=== PATIENT | male | born 1925 | race Caucasian/White ===

== ENCOUNTER 2016-11-08 18:48 | Emergency (ER) | payer MEDICARE ==
[2016-11-08] MEDS ORDERED: IOPAMIDOL 370 (76%) 100 ML VIAL IV ONE (18:49)
[2016-11-08] MEDS ORDERED: ONDANSETRON 4 MG/2ML 2 ML VIAL ONE (19:32)
[2016-11-08 19:59] LABS: ABSOLUTE NEUTROPHIL COUNT 11.5 K/mm3 (1.8-7.7); BASO # 0.1 K/mm3 (0.0-0.2); BASO % 0.4 % (0.2-1.0); EOS # 0.1 (0.0-0.5); EOS % 0.6 % (0.9-2.9); HEMATOCRIT 39.8 % (32.0-52.0); HEMOGLOBIN 12.6 gm/l (14.0-18.0); IMM NEUT # 0.2 K/mm3 (0-0.2); IMM NEUT% 1.4 % (0-1); LYMPH # 1.5 (1.0-4.8); MEAN CORPUSCULAR HEMOGLOBIN 29.4 pg (27.0-31.0); MEAN CORPUSCULAR HGB CONC 31.7 g/dl (33.0-37.0); MEAN PLATELET VOLUME 9.8 fl (7.4-10.4); MONO # 1.2 (0.0-0.8); MONO % 8.4 % (4-12); NEUT % 79.2 % (43-75); PLATELET COUNT 146 K/mm3 (130-400); RED CELL DISTRIBUTION WIDTH 14.4 % (11.5-14.5)
[2016-11-08 20:16] LABS: ALB/GLOB RATIO 1.7 (>1.0); ALBUMIN 3.6 gm/dL (3.5-5.7); CALCIUM 8.9 mg/dL (8.6-10.3)
[2016-11-08] MEDS ORDERED: MORPHINE SULFATE 4 MG/ML SYRINGE ONE (20:25)
[2016-11-08 21:05] LABS: INR 2.54
[2016-11-08] MEDS ORDERED: SODIUM CHLORIDE 0.9% IV ONE (22:30)
[2016-11-08] MEDS ORDERED: PHYTONADIONE ADULT IV ONE (22:30)
[2016-11-08 22:51] LABS: URINE BILIRUBIN NEGATIVE (NEGATIVE); URINE BLOOD NEGATIVE (NEGATIVE); URINE GLUCOSE (UA) NEGATIVE (NEGATIVE); URINE LEUKOCYTE ESTERASE NEGATIVE (NEGATIVE); URINE NITRITE NEGATIVE (NEGATIVE); URINE PROTEIN 1+ (NEGATIVE); URINE UROBILINOGEN NORMAL (0-1 mg/dl)
[2016-11-08 22:54] LABS: URINE APPEARANCE CLEAR; URINE COLOR YELLOW
[2016-11-08] MEDS ORDERED: PROTHROMBIN COMPLX (PCC HUMAN) 500 UNITS KIT IV ONE (23:00)
--- NOTE | 2016-11-14 14:21 | CT ---
Exam Type: ABD/PELVIS W/ CON Date and Time: 11/08/2016 8:39 PM Clinical information: Left lower quadrant pain. Comparison: None Procedure: Imaging device: [employer] Aquilion [address] scanner 1 mm axial images were obtained through the abdomen and pelvis. Stacked reconstructed 3, 4 and 5 mm images were photographed in the axial coronal and sagittal planes. No oral contrast was utilized for this examination. 100 ml of Isovue-370 was injected intravenously. Exam: with intravenous contrast. FINDINGS: Lung bases:Linear bibasilar atelectasis or scarring is observed. There is no effusion or pneumothorax identified. The heart size is enlarged with evidence of a pericardial effusion which measures up to 2.3 cm transversely along the posterior aspect of the heart. An indwelling pacing device is suggested. Liver: A low-attenuation focus is seen within the right hepatic lobe but attenuation value near 0 suggestive of an hepatic cyst. Spleen: The spleen is heterogeneous with numerous scattered low-attenuation foci. The splenic size is unremarkable. Gallbladder: A small calcified gallstone is suggested within the dependent portion of the gallbladder. Pancreas: Normal without enlargement or evidence of adjacent inflammatory changes. Adrenal glands: Normal without enlargement or evidence of adjacent inflammatory changes. Abdominal aorta: The aorta demonstrates atherosclerotic calcification with a large distal aortic aneurysm measuring up to 7.1 x 6.4 cm in size. There is adjacent increased attenuation fluid seen within the region both anterior and left lateral aspect of the aorta extending from the level of the pancreas into the left lower quadrant suspicious for aneurysmal leakage. Active extravasation of contrast is however not visualized. Substantial intraluminal thrombus is seen within the largest portion of the aorta. 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 Kidneys: The kidneys appear to be symmetric in size with no perinephric inflammatory changes are identified. No current findings of hydronephrosis are seen. Bowel structures: Distal colonic diverticulosis is evident without evidence to suggest diverticulitis. Appendix: The appendix is well-visualized and appears to be of normal caliber. No periappendiceal inflammatory changes or CT findings of appendicitis are currently observed. Bladder: The bladder is of normal contour. No wall thickening or significant distention is observed. Hernia: Fat filled inguinal hernias are present, left greater than right. There is also an umbilical hernia with a small amount of fluid seen within the hernia sac. Adenopathy: No significant enlarged adenopathy is visualized. Osseous structures: Multilevel lumbar degenerative changes are present. Pelvic structures: The prostate gland is enlarged. IMPRESSION: 1. 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 There is high attenuation fluid seen within the retroperitoneum extending from anterior to posterior from the level of the pancreas to the left lower quadrant suggestive of aneurysmal rupture/leakage. Active contrast extravasation is not currently visualized however. 2. Numerous scattered splenic low-attenuation foci which may reflect cysts or possibly areas of splenic infarction. Infection is thought unlikely. 3. 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 4. Distal colonic diverticulosis without evidence to suggest diverticulitis. 5. Gross cardiomegaly with a large pericardial effusion measuring up to 2.3 cm transversely. 6. An indwelling pacing device. 7. A probable right hepatic cyst. 8. Cholelithiasis. 9. An umbilical and bilateral fat filled inguinal hernias. 10. Multilevel lumbar degenerative changes. The findings were called to the emergency room at 2202 hours,11/08/2016, by [facility].
== END 2016-11-08 22:35 ==
LOC: ED 18:48
DX: I71.3 Abdominal aortic aneurysm, ruptured (principal); I50.9 Heart failure, unspecified; I48.91 Unspecified atrial fibrillation; Z79.01 Long term (current) use of anticoagulants; Z95.0 Presence of cardiac pacemaker; Z87.891 Personal history of nicotine dependence
CPT/HCPCS: 83690; 82150; 85025; 80053; 85610; 81003; 84484; 74177; 96375 ×2; 99284; 96361; 96365; 96368; 99285; J3430; J2270; J2405; J7050; Q9967; C9132